=== PATIENT | male | born 1960 ===

== ENCOUNTER 2017-04-02 17:39 | Emergency (ER) | payer MEDICAID ==
[2017-04-02 17:39] VITALS: BMI 29.2
[2017-04-02 17:49] VITALS: O2SAT 99
[2017-04-02 19:46] LABS: BASO # 0.1 K/uL (0.0-0.2); BASO % 0.9 % (0.0-2.0); EOS # 0.3 K/uL (0.0-0.7); EOS % 2.6 % (0.0-4.0); LYMPH # 1.2 K/uL (1.0-4.3); LYMPH % 11.7 % (20.0-40.0); MEAN CELL VOLUME 90.5 fl (80.0-94.0); MEAN CORPUSCULAR HEMOGLOBIN 29.9 pg (27.0-31.0); MEAN CORPUSCULAR HGB CONC 33.1 g/dL (33.0-37.0); MONO % 10.2 % (0.0-10.0); NEUT # 7.5 K/uL (1.8-7.0); NEUT % 74.6 % (50.0-75.0); RED CELL DISTRIBUTION WIDTH 16.1 % (11.5-14.5); WHITE BLOOD COUNT 10.1 K/uL (4.8-10.8)
--- NOTE | 2017-04-02 19:48 | ED PDOC ---
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 states for the past 5 days he has not been able to have BM. States he has the urged to have a BM but has been unable to. Reports his last BM was very hard. Pain is localized to the anus which occurs only when he attempts to have a BM. Denies N/V/D, melena, hematochezia, BRBPR, fever, previous abdominal surgeries. Past Medical History Vital Signs: Last Vital Signs Temp 98.3 F 04/02/17 17:46 Pulse 64 04/02/17 17:46 Resp 18 04/02/17 17:46 BP 119/71 04/02/17 17:46 Pulse Ox 99 04/02/17 17:46 - Medical History PMH: HTN, Hypercholesterolemia, End Stage Renal Disease (MWF), Chronic Kidney Disease - Surgical History Surgical History: No Surg Hx - Family History Family History: States: No Known Family Hx - Immunization History Hx Influenza Vaccination: No (UNKNOWN) Hx Pneumococcal Vaccination: No (UNKNOWN) - Home Medications Home Medications: Ambulatory Orders Medication Instructions Recorded Cilostazol 100 mg PO DAILY 09/02/13 Ezetimibe [Zetia] 10 mg PO DAILY 09/02/13 Famotidine 20 mg PO DAILY 09/02/13 Febuxostat [Uloric] 80 mg PO DAILY 09/02/13 Naproxen 500 mg PO DAILY 09/02/13 Omeprazole 40 mg PO DAILY 09/02/13 Rosuvastatin Calcium [Crestor] 10 mg PO DAILY 09/02/13 Sitagliptin Phosphate [Januvia] 100 mg PO DAILY 09/02/13 Tamsulosin [Flomax] 0.4 mg PO DAILY 09/02/13 Insulin Glargine,Hum.rec.anlog 20 units SUBCUT BID 09/06/13 [Lantus] Ezetimibe [Zetia] 10 mg PO DAILY #0 tab 10/25/15 Metoprolol Tartrate [Lopressor] 25 mg PO BID #0 tab 10/25/15 amLODIPine [Norvasc] 10 mg PO DAILY #0 tab 10/25/15 oxyCODONE/Acetaminophen [Percocet 1 tab PO QID PRN #10 tab 03/18/17 5/325 mg Tab] - Allergies Allergies/Adverse Reactions: Allergies Allergy/AdvReac Type Severity Reaction Status Date / Time No Known Allergies Allergy Verified 08/09/13 09:46 Physical Exam - Reviewed Nursing Documentation Reviewed: Yes Vital Signs Reviewed: Yes - Physical Exam Appears: Positive for: Well, Non-toxic, No Acute Distress Head Exam: Positive for: ATRAUMATIC, NORMAL INSPECTION, NORMOCEPHALIC Skin: Positive for: Normal Color, Warm. Negative for: Rash Eye Exam: Positive for: EOMI, Normal appearance, PERRL ENT: Positive for: Normal ENT Inspection Neck: Positive for: Normal, Painless ROM Cardiovascular/Chest: Positive for: Regular Rate, Rhythm Respiratory: Positive for: CNT, Normal Breath Sounds Gastrointestinal/Abdominal: Positive for: Normal Exam, Bowel Sounds, Soft. Negative for: Tenderness, Distended Back: Positive for: Normal Inspection Rectal: Positive for: Other (brown stool present). Negative for: Black Stool, Blood Streaked Stool, Hemorrhoids Extremity: Positive for: Normal ROM, Other (R arm fistula with +bruit) Neurologic/Psych: Positive for: Alert, Oriented. Negative for: Aphasia, Facial Droop - ECG O2 Sat by Pulse Oximetry: 99 - Progress ED Course And Treament: Labs ordered. CT abd/pelvis w/o contrast ordered. Disposition - Clinical Impression Clinical Impression: Constipation - Patient ED Disposition Is Patient to be Admitted: Transfer of Care (Signed out to Krysten [facility] pending final disposition.) - Disposition Disposition Time: 20:00 Condition: STABLE
[2017-04-02 19:55] LABS: ALB/GLOB RATIO 1.2 (1.0-2.1); BILIRUBIN,TOTAL 0.7 mg/dl (0.2-1.3); CALCIUM 8.7 mg/dL (8.4-10.2); TOTAL PROTEIN 7.2 G/DL (6.3-8.2)
[2017-04-02 19:59] LABS: POTASSIUM 5.3 MMOL/L (3.6-5.0)
--- NOTE | 2017-04-02 21:33 | CT ---
EXAM: CT Abdomen and Pelvis Without Intravenous Contrast CLINICAL HISTORY: 56 years old, male; Pain; Abdominal pain; Generalized; Additional info: Constipation TECHNIQUE: Axial computed tomography images of the abdomen and pelvis without intravenous contrast. All CT scans at this facility use one or more dose reduction techniques, viz.: automated exposure control; ma/kV adjustment per patient size (including targeted exams where dose is matched to indication; i.e. head); or iterative reconstruction technique. Coronal and sagittal reformatted images were created and reviewed. COMPARISON: No relevant prior studies available. FINDINGS: Limitations: Lack of intravenous contrast. Lower thorax: Minimal atelectasis/scarring. Trace RIGHT pleural effusion/thickening. ABDOMEN: Liver: Unremarkable. Gallbladder and bile ducts: Mild gallbladder distention no calcified gallstones. No ductal dilation. Pancreas: Unremarkable. No ductal dilation. Spleen: No splenomegaly. Adrenals: No mass. Kidneys and ureters: [id number] stranding about kidneys, nonspecific. Too small to characterize lesion within RIGHT kidney. No hydronephrosis. Stomach and bowel: Moderate amount of stool within colon. Mild mural thickening vs underdistention of rectum. No associated inflammatory stranding. Appendix: No findings to suggest acute appendicitis. PELVIS: Bladder: Unremarkable. No stones. Reproductive: Unremarkable as visualized. Subperitoneal space: Mild stranding/fluid in presacral space, nonspecific. ABDOMEN and PELVIS: Intraperitoneal space: Trace free fluid within pelvis. No free air. Mild fascial thickening. Bones/joints: Mild to moderate degenerative changes of spine. Mild chronic compression deformity superior endplate L1 vertebral body. Soft tissues: Mild gynecomastia. Minimal stranding within subcutaneous tissues. Vasculature: Mild atherosclerotic disease. No aneurysm. Lymph nodes: No pathologically enlarged lymph nodes. IMPRESSION: 1. Mild rectal wall thickening versus underdistention. Clinical correlation is needed. 2. Mild gallbladder distention. Consider ultrasound. 3. Mild presacral fluid/stranding, nonspecific. 4. Perinephric stranding, nonspecific. 5. Incidental/non-acute findings are described above.
--- NOTE | 2017-04-02 21:47 | ED PDOC ---
- Laboratory Results Result Diagrams: 04/02/17 19:13 04/02/17 19:39 - ECG O2 Sat by Pulse Oximetry: 99 - Progress ED Course And Treament: EXAM: CT Abdomen and Pelvis Without Intravenous Contrast CLINICAL HISTORY: 56 years old, male; Pain; Abdominal pain; Generalized; Additional info: Constipation TECHNIQUE: Axial computed tomography images of the abdomen and pelvis without intravenous contrast. All CT scans at this facility use one or more dose reduction techniques, viz.: automated exposure control; ma/kV adjustment per patient size (including targeted exams where dose is matched to indication; i.e. head); or iterative reconstruction technique. Coronal and sagittal reformatted images were created and reviewed. COMPARISON: No relevant prior studies available. FINDINGS: Limitations: Lack of intravenous contrast. Lower thorax: Minimal atelectasis/scarring. Trace RIGHT pleural effusion/ thickening. ABDOMEN: Liver: Unremarkable. Gallbladder and bile ducts: Mild gallbladder distention no calcified gallstones. No ductal dilation. Pancreas: Unremarkable. No ductal dilation. Spleen: No splenomegaly. Adrenals: No mass. Kidneys and ureters: [id number] stranding about kidneys, nonspecific. Too small to characterize lesion within RIGHT kidney. No hydronephrosis. Stomach and bowel: Moderate amount of stool within colon. Mild mural thickening vs underdistention of rectum. No associated inflammatory stranding. Appendix: No findings to suggest acute appendicitis. PELVIS: Bladder: Unremarkable. No stones. Reproductive: Unremarkable as visualized. Subperitoneal space: Mild stranding/fluid in presacral space, nonspecific. ABDOMEN and PELVIS: Intraperitoneal space: Trace free fluid within pelvis. No free air. Mild fascial thickening. Bones/joints: Mild to moderate degenerative changes of spine. Mild chronic compression deformity superior endplate L1 vertebral body. Soft tissues: Mild gynecomastia. Minimal stranding within subcutaneous tissues. Vasculature: Mild atherosclerotic disease. No aneurysm. Lymph nodes: No pathologically enlarged lymph nodes. IMPRESSION: 1. Mild rectal wall thickening versus underdistention. Clinical correlation is needed. 2. Mild gallbladder distention. Consider ultrasound. 3. Mild presacral fluid/stranding, nonspecific. 4. Perinephric stranding, nonspecific. 5. Incidental/non-acute findings are described above. EXAM: US Abdomen Limited, Right Upper Quadrant CLINICAL HISTORY: 56 years old, male; Pain; Abdominal pain; Epigastric; Additional info: Abd pain TECHNIQUE: Real-time ultrasound of the right upper quadrant with image documentation. COMPARISON: CT - ABD PELVIS W/O PO OR 04/02/2017 8:50:43 PM FINDINGS: Liver: Normal echogenicity. No mass. No intrahepatic bile duct dilatation. Gallbladder: No gallstones. No wall thickening. No pericholecystic fluid. No sonographic Soliz's sign. Common bile duct: No dilatation. No stones. Pancreas: Obscured by overlying bowel gas. Right kidney: Normal echogenicity. Probable 0.7 cm cyst. No hydronephrosis. IMPRESSION: 1. No acute findings. 2. Non-acute findings are described above. Case discussed with ED attending Dr. Elliott; agrees with plan to discharge and follow up outpatient. Patient given Lactulose PO in ED, states he does not ambulate well without assisted device, which he does not have with him; will given enema to use at home. Rx colace provided. Follow up with PMD in 2-3 days. High fiber diet. Return to ED for worsening/concerning symptoms. Disposition - Clinical Impression Clinical Impression: Constipation - POA Present On Arrival: None - Disposition Disposition: Routine/Home Disposition Time: 00:00 Condition: STABLE Prescriptions: Docusate Sodium [Colace] 100 mg PO BID PRN #30 capsule PRN Reason: Constipation Instructions: Constipation (ED), High Fiber Diet (ED) Print Language: ANGUILLAN
--- NOTE | 2017-04-02 22:24 | US ---
EXAM: US Abdomen Limited, Right Upper Quadrant CLINICAL HISTORY: 56 years old, male; Pain; Abdominal pain; Epigastric; Additional info: Abd pain TECHNIQUE: Real-time ultrasound of the right upper quadrant with image documentation. COMPARISON: CT - ABD PELVIS W/O PO OR 04/02/2017 8:50:43 PM FINDINGS: Liver: Normal echogenicity. No mass. No intrahepatic bile duct dilatation. Gallbladder: No gallstones. No wall thickening. No pericholecystic fluid. No sonographic Soliz's sign. Common bile duct: No dilatation. No stones. Pancreas: Obscured by overlying bowel gas. Right kidney: Normal echogenicity. Probable 0.7 cm cyst. No hydronephrosis. IMPRESSION: 1.No acute findings. 2.Non-acute findings are described above.
[2017-04-03 03:08] VITALS: BP 135/80; PULSE 85; RESP 16; TEMP 97.9
== END 2017-04-03 03:09 | disposition home or self-care (01) ==
LOC: H.ER 17:39
DX: K59.00 Constipation, unspecified (principal)

== ENCOUNTER 2017-04-03 03:41 | Inpatient (IN) | payer MEDICAID ==
[2017-04-03 04:00] VITALS: BMI 26.6
[2017-04-03 10:06] LABS: BASO # 0.1 K/uL (0.0-0.2); BASO % 0.9 % (0.0-2.0); EOS # 0.3 K/uL (0.0-0.7); HEMATOCRIT 35.8 % (35.0-51.0); LYMPH # 1.8 K/uL (1.0-4.3); LYMPH % 17.1 % (20.0-40.0); MEAN CORPUSCULAR HEMOGLOBIN 30.4 pg (27.0-31.0); MEAN CORPUSCULAR HGB CONC 33.8 g/dL (33.0-37.0); MEAN PLATELET VOLUME 7.7 fl (7.2-11.7); MONO % 9.9 % (0.0-10.0); NEUT # 7.2 K/uL (1.8-7.0); NEUT % 69.1 % (50.0-75.0); RED CELL DISTRIBUTION WIDTH 15.8 % (11.5-14.5); WHITE BLOOD COUNT 10.5 K/uL (4.8-10.8)
[2017-04-03 10:17] LABS: ALB/GLOB RATIO 1.2 (1.0-2.1); BILIRUBIN,TOTAL 0.8 mg/dl (0.2-1.3); CALCIUM 8.8 mg/dL (8.4-10.2); TOTAL PROTEIN 7.8 G/DL (6.3-8.2)
[2017-04-03 11:18] LABS: POTASSIUM 4.8 MMOL/L (3.6-5.0)
[2017-04-03] MEDS ORDERED: Patient's Own Med (Diclofenac Sodium [Voltaren] 1 APPL) TOP PRN (18:37)
[2017-04-03] MEDS: Insulin Regular 100 units/ml SC SCH (22:16)
[2017-04-03] MEDS: Insulin Detemir 100 Units/ml Inj SC SCH (22:30)
[2017-04-04] MEDS: Insulin Regular 100 units/ml SC SCH ×4 (07:32→21:40)
[2017-04-04] MEDS: Enoxaparin 30 mg Syringe SC SCH (09:00)
[2017-04-04] MEDS: Calcium Acetate 667 MG Capsule PO SCH ×3 (09:01→16:33)
[2017-04-04] MEDS: Multivitamin Vitamin B Complex (Nephro-Vite) Tab PO SCH (10:00)
[2017-04-04] MEDS: Multivitamin With Minerals Tab PO SCH (10:00)
[2017-04-04] MEDS: Insulin Detemir 100 Units/ml Inj SC SCH (21:34)
[2017-04-05] MEDS: Insulin Regular 100 units/ml SC SCH ×4 (06:48→21:42)
[2017-04-05] MEDS: Multivitamin Vitamin B Complex (Nephro-Vite) Tab PO SCH (09:08)
[2017-04-05] MEDS: Enoxaparin 30 mg Syringe SC SCH (09:08)
[2017-04-05] MEDS: Calcium Acetate 667 MG Capsule PO SCH ×3 (09:09→16:30)
[2017-04-05] MEDS: Multivitamin With Minerals Tab PO SCH (09:10)
[2017-04-05] MEDS ORDERED: Lidocaine 2% GEL TOP SCH (12:45)
[2017-04-05] MEDS: Lidocaine 5% Patch TD SCH (14:41)
[2017-04-05] MEDS: Insulin Detemir 100 Units/ml Inj SC SCH (21:37)
[2017-04-06] MEDS: Multivitamin With Minerals Tab PO SCH (08:42)
[2017-04-06] MEDS: Lidocaine 5% Patch TD SCH (08:43)
[2017-04-06] MEDS: Multivitamin Vitamin B Complex (Nephro-Vite) Tab PO SCH (08:43)
[2017-04-06] MEDS: Enoxaparin 30 mg Syringe SC SCH (08:46)
[2017-04-06] MEDS: Calcium Acetate 667 MG Capsule PO SCH ×3 (08:47→19:26)
[2017-04-06] MEDS: Insulin Regular 100 units/ml SC SCH ×4 (09:05→21:48)
[2017-04-06 09:33] LABS: HEMATOCRIT 32.5 % (35.0-51.0); MEAN CELL VOLUME 89.1 fl (80.0-94.0); MEAN CORPUSCULAR HEMOGLOBIN 30.5 pg (27.0-31.0); MEAN CORPUSCULAR HGB CONC 34.2 g/dL (33.0-37.0); WHITE BLOOD COUNT 7.7 K/uL (4.8-10.8)
[2017-04-06 09:51] LABS: CALCIUM 8.7 mg/dL (8.4-10.2); POTASSIUM 5.6 MMOL/L (3.6-5.0)
[2017-04-06] MEDS ORDERED: Sod Polystyrene Sulf 15 gm/60 ml Oral Susp PO ONE (13:33)
[2017-04-06] MEDS: Insulin Detemir 100 Units/ml Inj SC SCH (21:50)
[2017-04-07 09:51] LABS: HEMATOCRIT 33.9 % (35.0-51.0); MEAN CELL VOLUME 89.5 fl (80.0-94.0); MEAN CORPUSCULAR HEMOGLOBIN 30.8 pg (27.0-31.0); MEAN CORPUSCULAR HGB CONC 34.4 g/dL (33.0-37.0); RED CELL DISTRIBUTION WIDTH 15.7 % (11.5-14.5); WHITE BLOOD COUNT 7.5 K/uL (4.8-10.8)
[2017-04-07] MEDS: Multivitamin Vitamin B Complex (Nephro-Vite) Tab PO SCH (10:00)
[2017-04-07] MEDS: Multivitamin With Minerals Tab PO SCH (10:00)
[2017-04-07 10:01] LABS: POTASSIUM 5.4 MMOL/L (3.6-5.0)
[2017-04-07] MEDS: Calcium Acetate 667 MG Capsule PO SCH ×3 (10:45→18:17)
[2017-04-07] MEDS: Enoxaparin 30 mg Syringe SC SCH (10:58)
[2017-04-07] MEDS: Lidocaine 5% Patch TD SCH (10:58)
[2017-04-07] MEDS: Insulin Regular 100 units/ml SC SCH ×4 (10:59→22:19)
[2017-04-07] MEDS ORDERED: Sod Polystyrene Sulf 15 gm/60 ml Oral Susp PO ONE (15:13)
[2017-04-07] MEDS: Insulin Detemir 100 Units/ml Inj SC SCH (22:21)
[2017-04-08 06:50] LABS: ALB/GLOB RATIO 1.2 (1.0-2.1); BILIRUBIN,TOTAL 0.3 mg/dl (0.2-1.3); CALCIUM 8.9 mg/dL (8.4-10.2); TOTAL PROTEIN 7.1 G/DL (6.3-8.2)
[2017-04-08 06:53] LABS: POTASSIUM 5.1 MMOL/L (3.6-5.0)
[2017-04-08] MEDS: Insulin Regular 100 units/ml SC SCH ×4 (07:00→21:52)
[2017-04-08] MEDS: Lidocaine 5% Patch TD SCH (08:58)
[2017-04-08] MEDS: Multivitamin With Minerals Tab PO SCH (09:00)
[2017-04-08] MEDS: Multivitamin Vitamin B Complex (Nephro-Vite) Tab PO SCH (09:06)
[2017-04-08] MEDS: Calcium Acetate 667 MG Capsule PO SCH ×2 (09:07→13:00)
[2017-04-08] MEDS: Enoxaparin 30 mg Syringe SC SCH ×2 (15:13→17:02)
[2017-04-08] MEDS: Insulin Detemir 100 Units/ml Inj SC SCH (22:57)
[2017-04-09] MEDS: Insulin Regular 100 units/ml SC SCH ×4 (07:30→22:10)
[2017-04-09] MEDS: Calcium Acetate 667 MG Capsule PO SCH ×3 (08:29→17:08)
[2017-04-09] MEDS: Multivitamin Vitamin B Complex (Nephro-Vite) Tab PO SCH (08:29)
[2017-04-09] MEDS: Lidocaine 5% Patch TD SCH (08:29)
[2017-04-09] MEDS: Multivitamin With Minerals Tab PO SCH (08:29)
[2017-04-09] MEDS: Enoxaparin 30 mg Syringe SC SCH (08:30)
[2017-04-09] MEDS: Insulin Detemir 100 Units/ml Inj SC SCH (22:11)
[2017-04-10 00:14] VITALS: O2SAT 98
[2017-04-10 06:30] LABS: HEMATOCRIT 32.5 % (35.0-51.0); MEAN CELL VOLUME 90.3 fl (80.0-94.0); MEAN CORPUSCULAR HEMOGLOBIN 30.1 pg (27.0-31.0); MEAN CORPUSCULAR HGB CONC 33.4 g/dL (33.0-37.0); RED CELL DISTRIBUTION WIDTH 15.9 % (11.5-14.5); WHITE BLOOD COUNT 6.8 K/uL (4.8-10.8)
[2017-04-10 06:37] LABS: CALCIUM 8.9 mg/dL (8.4-10.2)
[2017-04-10] MEDS: Insulin Regular 100 units/ml SC SCH ×2 (06:44→11:55)
[2017-04-10 06:59] LABS: POTASSIUM 5.2 MMOL/L (3.6-5.0)
[2017-04-10 07:26] VITALS: RESP 18; TEMP 97.3
[2017-04-10] MEDS: Multivitamin With Minerals Tab PO SCH (09:38)
[2017-04-10] MEDS: Enoxaparin 30 mg Syringe SC SCH (09:38)
[2017-04-10] MEDS: Multivitamin Vitamin B Complex (Nephro-Vite) Tab PO SCH (09:39)
[2017-04-10] MEDS: Lidocaine 5% Patch TD SCH (09:39)
[2017-04-10] MEDS: Calcium Acetate 667 MG Capsule PO SCH ×2 (09:40→13:14)
[2017-04-10 12:31] VITALS: BP 130/81
[2017-04-10 13:15] VITALS: PULSE 83
== END 2017-04-10 15:08 | DRG 296 ==
LOC: H.ER 03:41 → H.EROBSV 04:14 → H.ERHOLD 12:11 → H.MEDSURG1 15:28 → OBSVTOIN 04-04 19:10
PROVIDERS: ADMIT Family Medicine; ATTEND Family Medicine
PROC: 5A1D70Z Performance of Urinary Filtration, Intermittent, Less than 6 Hours Per Day (ICD-10-PCS; principal; 2017-04-04)
DX: E87.79 Other fluid overload (principal); I12.0 Hypertensive chronic kidney disease with stage 5 chronic kidney disease or end stage renal disease; N18.6 End stage renal disease; E10.22 Type 1 diabetes mellitus with diabetic chronic kidney disease; D63.1 Anemia in chronic kidney disease; K21.9 Gastro-esophageal reflux disease without esophagitis; E78.00 Pure hypercholesterolemia, unspecified; M10.9 Gout, unspecified; N40.0 Benign prostatic hyperplasia without lower urinary tract symptoms; Z60.2 Problems related to living alone; Z99.2 Dependence on renal dialysis; Z79.4 Long term (current) use of insulin; Z79.82 Long term (current) use of aspirin